=== PATIENT | male | born 1970 | race Caucasian/White ===

== ENCOUNTER 2020-04-20 07:58 | Outpatient (CLI) | payer MEDICARE, SELFPAY ==
--- NOTE | 2020-04-20 | IR_ITS ---
WS: [id number] MYELOGRAM CERVICAL SPINE AND LUMBAR Fluoroscopic guided cervical myelogram CLINICAL INFORMATION: POSTLAMINECTOMY SYNDROME COMPARISON: None. TECHNIQUE: The procedure, including risks, benefits, and complications, were discussed with the patie nt who agreed to proceed. A timeout was performed to confirm correct patient, procedure, and site. Using sterile technique, the patient was prepped and draped in the usual sterile fashion. After admin istration of local anesthesia using 1% preservative-free lidocaine and using fluoroscopic guidance, a 22-gauge spinal needle was advanced into the subarachnoid space at the L3-L4 level. Subsequently 13 cc of Omnipaque 300 was administered into the thecal sac. The needle was removed and hemostasis was a chieved. Subsequently the table was tilted down and contrast flowed freely into the cervical spine. S pot fluoroscopic images were obtained. FLUOROSCOPIC TIME: 2.8 minutes. Spot fluoroscopic images demonstrate prior postoperative changes pedicle screw fixation L3-S1 with in terconnecting rods. Interbody fusion L3-L4 L4-L5. 5 mm anterolisthesis L4 on L5. No instability on fl exion-extension. Moderate spondylitic changes cervical spine. Straightening of the normal cervical lordosis. Normal pr evertebral soft tissues. Normal C1-[address] myelogram report for additional detail. IR/IR myelogram spine cervic/lumb IMPRESSION: 1. Uncomplicated lumbar and cervical myelogram. 2. Pedicle screw fixation L3-S1 with interconnecting rods. No instability on f lexion-extension. 3. No instability in the cervical spine.
--- NOTE | 2020-04-20 | CT_ITS ---
WS: [id number] CT LUMBAR SPINE TECHNIQUE: Contrast-enhanced CT of the lumbar spine with coronal and sagittal reformatted images. CLINICAL INFORMATION: POSTLAMINECTOMY SYNDROME COMPARISON: MRI 3 DLP: 1914.[address] scans at [facility] use at least one of these dose optimization techniques: automat ed exposure control; mA and/or kV adjustment per patient size (includes targeted exams where dose is matched to clinical indication); or iterative reconstruction. FINDINGS: Mild lumbar curve. No acute compression. No high-grade central canal stenosis. Prior postoperative ch anges pedicle screw fixation L3-S1 with interconnecting rods and dorsal laminectomy defects. Dorsolat eral bony fusion. Lucency along the S1 pedicle screws. L1-L2: Small central disc osteophyte protrusion with slight effacement of the ventral thecal sac. Mil d central canal stenosis. Mild left and no significant right foraminal narrowing. Mild facet arthropa thy. L2-L3: Small central disc osteophyte protrusion. Mild/moderate central canal stenosis. Mild right and no significant left foraminal narrowing. Mild facet arthropathy. L3-L4: Postoperative changes pedicle screw fixation with interbody fusion. Laminectomy defects. Mild right and no significant left foraminal narrowing. Spinal canal is patent. L4-L5: Dorsal laminectomy defects. Dorsal bone graft material. Mild left greater than right bony fora reg narrowing. Spinal canal is patent. Pedicle screw fixation. L5-S1: Laminectomy defects. Mild bilateral bony foraminal narrowing. Visualized pelvic bony structures: Normal. Paravertebral soft tissues: Normal. CT/CT lumbar spine w con [id number] IMPRESSION: 1. L3-S1 pedicle screw fixation with interconnecting rods. Dorsal laminectomy defects. Lucency along the L5 pedicle screws consistent with loosening. Hardwar e otherwise appears well seated. 2. Interbody fusion grafts L3-L4 and L4-L5 appear well-seated. 3. Small central disc osteophyte protrusions L1-L2 and L2-L3 with slight effac ement of ventral thecal sac and mild to moderate central canal stenosis worse a t L2-3. 4. Mild bony foraminal narrowing described above.
--- NOTE | 2020-04-20 | CT_ITS ---
WS: [id number] CT CERVICAL MYELOGRAM TECHNIQUE: CT of the cervical spine coronal and sagittal reformatted images post intrathecal administ ration of contrast. CLINICAL INFORMATION: POSTLAMINECTOMY SYNDROME COMPARISON: MRI September 01, 2006 DLP: 1571.[address] scans at [facility] use at least one of these dose optimization techniques: automat ed exposure control; mA and/or kV adjustment per patient size (includes targeted exams where dose is matched to clinical indication); or iterative reconstruction. FINDINGS: Straightening of the normal cervical lordosis. Moderate spondylitic changes. No high-grade central ca nal stenosis. C2-C3: No significant disc bulging. Spinal canal and foramen are patent. C3-C4: Disc osteophyte complex with endplate ridging. Tiny central disc osteophyte protrusion contact s the cervical cord. Mild to moderate left and no significant right foraminal narrowing. Mild central canal stenosis. Moderate facet arthropathy. C4-C5: Central shallow osteophyte with slight contact of the cervical cord. Mild facet arthropathy. M ild left and no significant right foraminal narrowing. Spinal canal is patent. C5-C6: Tiny central disc osteophyte protrusion with mild central canal stenosis. Slight contact of th e cervical cord. Mild left and no significant right foraminal narrowing. Mild facet arthropathy. C6-C7: Disc osteophyte complex eccentric to the left. Mild to moderate left and no significant right foraminal narrowing. Spinal canal is patent. C7-T1: Left eccentric disc osteophyte complex with mild to moderate left foraminal narrowing. Spinal canal and right foramen are patent. Visualized posterior fossa structures: Normal. CT/CT cervical spine w con [id number] IMPRESSION: 1. Straightening of the normal cervical lordosis with moderate spondylitic alla nges. 2. Small central shallow disc osteophyte protrusions C3-C4,C4-C5, and C5-6 wit h slight contact cervical cord and mild central canal stenosis. 3. Multilevel mild bony foraminal narrowing more prominent at left C3-C4, left C5-C6 and left C6-C7. Mild to moderate left C7-T1 bony foraminal narrowing.
[2020-04-20] MEDS: iohexol 300 mg/mL 50 mL Btl INTRATHECA (09:57)
== END 2020-04-20 07:59 | disposition home or self-care (01) ==
LOC: RADWPI 08:03
PROVIDERS: PCP Family Medicine; Visit Provider Anesthesiology Pain Medicine
DX: M96.1 Postlaminectomy syndrome, not elsewhere classified (principal); M54.2 Cervicalgia; M25.78 Osteophyte, vertebrae; M48.061 Spinal stenosis, lumbar region without neurogenic claudication; M48.02 Spinal stenosis, cervical region
CPT/HCPCS: 62305; 72040; 72120; 72126; 72132; Q9967

== ENCOUNTER 2023-09-07 11:09 | Outpatient (CLI) | payer MEDICARE, MEDICAID, SELFPAY ==
--- NOTE | 2023-09-07 11:17 | CT_ITS ---
WS: [id number] LDCT LUNG CANCER SCREENING HISTORY: NICOTINE DEPENDENCE, CIGARETTES TECHNIQUE: Axial imaging performed from the apices to 1 cm below the costophrenic angles. Coronal and sagittal reformats are submitted with axial MIP series. All CT scans at [facility] use at least one of these dose optimization techniques: automated exposure control; mA and/or kV adjustment per patient size (includes targeted exams where dose is matched to clinical indication); or iterativ e reconstruction. DLP: 123.19 mGy.cm DIvol: Mean CTDIvol: 2.70 (mGy) COMPARISON: Chest CT 07/25/2006 Diagnostic quality: Satisfactory Lungs: Benign calcified granuloma RIGHT upper lobe. No pulmonary mass or nodule. No endobronchial les ions. Heart: Normal size heart with no pericardial effusion.. Mild scattered coronary artery calcifications . Other findings: Mild atherosclerosis aorta. Normal size pulmonary artery. No adenopathy. IMPRESSION: CT/CT lung screening [id number] LUNG-RADS: 2-Benign Appearance or Behavior FOLLOW UP: 12 Month: Continue annual screening with LDCT OTHER FINDINGS (S MODIFIER): None.
--- NOTE | 2023-09-07 11:17 | MR_ITS ---
WS: [id number] MRI LUMBAR SPINE WITH CONTRAST TECHNIQUE: Sagittal T1, T2 and STIR imaging. Axial T1 and T2 imaging. Post gadolinium imaging was obt ained. CLINICAL INFORMATION: RADICULOPATHY, LUMBAR REGION COMPARISON: MRI [address] 2019 FINDINGS: Postoperative changes pedicle screw fixation L3-S1 with interconnecting rods. Interbody fusion L3-L4 L4-L5. Disc bulging worse at L1-L2 and L2-L3. L1-L2: Mild disc bulging with slight effacement of the ventral thecal sac. Mild central canal stenosi s. Mild facet arthropathy. Foramen are patent. L2-L3: Mild disc bulging with moderate central canal stenosis. This is slightly progressed compared t o previous. Foramen are patent. Mild facet arthropathy. L3-L4: Prior postoperative changes. Spinal canal and foramen are patent. L4-L5: Prior postoperative changes. Laminectomy defects. Spinal canal and foramen are patent. L5-S1: Mild disc bulging with mild central canal stenosis. Slight impingement on the traversing LEFT greater than RIGHT S1 nerve roots. Mild foraminal narrowing. Visualized pelvic bony structures: Normal. Paravertebral soft tissues: Normal. IMPRESSION: 1. Prior postoperative changes pedicle screw fixation L3-S1. 2. Mild central canal stenosis L1-2 due to central broad-based protrusion. This is slightly progress ed compared to the prior MRI. 3. Moderate central canal stenosis L2-3 with central disc protrusion progressed compared to the prio r MRI. 4. Spinal canal is patent at the fusion levels. 5. Mild central canal stenosis L5-S1 with slight impingement on the traversing LEFT S1 nerve root in the subarticular recess. This appears stable compared to 2017.
[2023-09-07] MEDS: gadobenate dimeglumine 20 mL vial IV (12:57)
[2023-09-07 13:24] VITALS: PULSE 76; RESP 18; O2SAT 98
[2023-09-07] MEDS: albuterol 2.5 mg/3 mL Neb INHALATION (13:27)
[2023-09-07 13:28] VITALS: PULSE 83
== END 2023-09-07 11:10 | disposition home or self-care (01) ==
LOC: RAD 11:09
PROVIDERS: PCP Nurse Practitioner Family; Visit Provider Nurse Practitioner Family
DX: Z12.2 Encounter for screening for malignant neoplasm of respiratory organs (principal); F17.210 Nicotine dependence, cigarettes, uncomplicated; M51.16 Intervertebral disc disorders with radiculopathy, lumbar region; Z98.890 Other specified postprocedural states; M48.07 Spinal stenosis, lumbosacral region
CPT/HCPCS: 71271; 72158; 94060; 94726; 94729; A9577; J7613

== ENCOUNTER 2024-02-05 08:59 | Outpatient (CLI) | payer MEDICARE, SELFPAY ==
--- NOTE | 2024-02-05 09:09 | CT_ITS ---
WS: [id number] CT ANGIOGRAPHY lower extremities. HISTORY: PAIN IN R LOWER LIMB TECHNIQUE: Arterial injection is performed during imaging to evaluate the aortic bifurcation with run off vessels to the ankles. MIP and volume rendering imaging has also been performed. All images are r eviewed. All CT scans at [facility] use at least one of these dose optimization techniques: au tomated exposure control; mA and/or kV adjustment per patient size (includes targeted exams where dos e is matched to clinical indication); or iterative reconstruction. Contrast: Omnipaque 350; 125 mL IV. DLP: 1353.90 mGy.cm COMPARISON: None available. Aortic bifurcation is intact. There is mild calcified plaque in intimal thickening. RIGHT lower extremity arterial system: Plaque but no occlusions. Common and external iliac artery are patent. Deep profunda and superficial femoral artery are patent. Scattered plaque throughout. Poor b olus injection. Very poor opacification of the popliteal artery and arteries below the knee. The audelia devin appear patent but they're poorly opacified. No complete occlusion. LEFT lower extremity arterial system: Mild plaque and intimal thickening throughout the iliac arterie s. Small caliber femoral artery. SFA and deep profunda are intact although small caliber. Popliteal a rtery is patent. Tibioperoneal branches are very small caliber and poorly visualized to the ankle. Th is is in part due to the bolus injection. [place] [id number] IMPRESSION: 1. Atherosclerotic plaque throughout the lower abdominal aorta through the freddie ac arteries and popliteal arteries. No occlusions. 2. Very poor bolus of contrast distal to the knees. Vessels appear to be enhan cing. No complete occlusion. 3. Small caliber SFAs. Atherosclerosis but no stenosis.
[2024-02-05] MEDS: iohexol 350 mg/mL 500 mL Btl (per mL) IV (10:06)
== END 2024-02-05 09:00 | disposition home or self-care (01) ==
LOC: RAD 08:59
PROVIDERS: PCP Nurse Practitioner Family; Visit Provider Nurse Practitioner Family
DX: M79.604 Pain in right leg (principal); I70.0 Atherosclerosis of aorta; I70.201 Unspecified atherosclerosis of native arteries of extremities, right leg; I70.8 Atherosclerosis of other arteries
CPT/HCPCS: 73706; Q9967

== ENCOUNTER → 2024-07-01 09:53 | Outpatient (BNVA) | payer MEDICARE, MEDICAID, SELFPAY | PROVIDERS: PCP Nurse Practitioner Family; Referring Provider Nurse Practitioner Family; Visit Provider Internal Medicine | DX: E21.0 Primary hyperparathyroidism; E55.9 Vitamin D deficiency, unspecified; N20.0 Calculus of kidney; Z79.890 Hormone replacement therapy | CPT/HCPCS: 99204 ==

== ENCOUNTER 2024-09-02 07:46 | Outpatient (CLI) | payer MEDICARE, SELFPAY ==
--- NOTE | 2024-09-02 07:55 | CT_ITS ---
WS: [id number] LDCT LUNG CANCER SCREENING HISTORY: HX OF TOBACCO USE TECHNIQUE: Axial imaging performed from the apices to 1 cm below the costophrenic angles. Coronal and sagittal reformats are submitted with axial MIP series. All CT scans at [facility] use at least one of these dose optimization techniques: automated exposure control; mA and/or kV adjustment per patient size (includes targeted exams where dose is matched to clinical indication); or iterativ e reconstruction. DLP: 143.99 mGy.cm DIvol: Mean CTDIvol: 3.50 (mGy) COMPARISON: 09/07/2023 Diagnostic quality: Satisfactory Lungs: Mild pulmonary hyperinflation. Benign calcified granuloma RIGHT upper lobe. New subcentimeter groundglass attenuation at the lingula. 3 mm nodules along the RIGHT fissures. Heart: Normal size heart with no pericardial effusion.. Other findings: Mild atherosclerosis aorta. RIGHT hilar and paratracheal lymph nodes which are calcif ied. Dense calcification in the coronary arteries. No adrenal mass. Mild thoracic spondylosis. CT/CT lung screening [id number] IMPRESSION: LUNG-RADS: 2-Benign Appearance or Behavior FOLLOW UP: 12 Month: Continue annual screening with LDCT OTHER FINDINGS (S MODIFIER): None.
== END 2024-09-02 07:47 | disposition home or self-care (01) ==
LOC: RAD 07:47
PROVIDERS: PCP Nurse Practitioner Family; Visit Provider Nurse Practitioner Family
DX: Z12.2 Encounter for screening for malignant neoplasm of respiratory organs (principal); Z87.891 Personal history of nicotine dependence; J84.10 Pulmonary fibrosis, unspecified; R91.8 Other nonspecific abnormal finding of lung field; I25.84 Coronary atherosclerosis due to calcified coronary lesion
CPT/HCPCS: 71271

== ENCOUNTER → 2024-10-09 16:18 | Outpatient (BNVA) | payer MEDICARE, SELFPAY | PROVIDERS: PCP Nurse Practitioner Family; Visit Provider Internal Medicine | DX: E21.0 Primary hyperparathyroidism (principal); E55.9 Vitamin D deficiency, unspecified; N20.0 Calculus of kidney | CPT/HCPCS: 99213 ==

== ENCOUNTER 2024-11-07 08:28 | Outpatient (CLI) | payer MEDICARE, SELFPAY ==
--- NOTE | 2024-11-07 09:00 | NM_ITS ---
WS: [id number] NUCLEAR MEDICINE PARATHYROID SCAN HISTORY: E21.0 - Primary hyperparathyroidism COMPARISON: None available. Patient is injected with 19.9 mCi technetium 99m Sestamibi. Static imaging of the anterior neck and upper thorax submitted at injection time and one hour postinjection. Sternal notch marker and chin markers are placed. Tiny focus of activity over the RIGHT lung apex does not persist on the delayed oblique imaging. Normal activity and uptake in the thyroid gland bilaterally on the early imaging. On the delayed imaging, activity from the thyroid gland has nearly washed out. There is a very subtle area of residual increased uptake in the inferior LEFT thyroid bed. NM/NM parathyroid [id number] IMPRESSION: 1. On the delayed imaging there is a very tiny, subtle area of increased uptak e remaining in the LEFT thyroid bed which could potentially represent a parathy roid adenoma. 2. Otherwise negative.
== END 2024-11-07 08:29 | disposition home or self-care (01) ==
LOC: RAD 08:29
PROVIDERS: PCP Nurse Practitioner Family; Visit Provider Internal Medicine
DX: E21.0 Primary hyperparathyroidism (principal)
CPT/HCPCS: 78070; A9500